=== PATIENT | male | born 2000 | race Caucasian/White ===

== ENCOUNTER 2024-08-14 14:35 | Emergency (ER) | payer MEDICAID, SELFPAY ==
[2024-08-14 14:52] VITALS: BP 156/96; PULSE 103; RESP 16; TEMP 37.8; O2SAT 97; BMI 21.9
--- NOTE | 2024-08-14 15:37 | ED_ITS ---
HPI - Neck Pain/Injury 2 General: Chief Complaint: Neck Pain/Injury Stated Complaint: headache, neck stiffness, fever Time Seen by Provider: 08/14/24 15:35 History of Present Illness: 22-year-old male presents clinic complai mark of headache stiff neck and fever he is concerned that he has meningitis. No rash. His girlfriend is also had upper respiratory illness and headache. No rash. Low-grade fever at home. Has had a bit of a headache. Slight sore throat as well. Related Data Allergies Allergy/AdvReac Type Severity Reaction Status Date / Time No Known Allergies Allergy Verified 08/14/24 14:55 Review of Systems 2 Const: Reports: fever(s) and body aches; Denies: chills ENMT: Reports: throat pain Card: Denies: chest pain Resp: Denies: dyspnea GI: Denies: abdominal pain : Denies: dysuria, urinary frequency or urinary urgency Musc: Reports: neck pain; Denies: back pain Skin/Breast: Denies: rash PFSH ED 2 PFSH: Medical History Psychiatric care Physical Exam 2 Const: COMMON NORMALS: no acute distress GENERAL APPEARANCE: cooperative and comfortable ORIENTATION/CONSCIOUSNESS: Yes awake, Yes oriented to person, Yes oriented to place and Yes oriented to time HENMT: COMMON NORMALS: normocephalic, atraumatic, hearing grossly normal bilaterally, external ears normal, EAC's normal and TM's normal bilaterally H EAD & SCALP: normocephalic and atraumatic EXTERNAL EAR: Yes external ears normal EXTERNAL AUDITORY CANAL: EAC's normal TYMPANIC MEMBRANE: TM's normal bilaterally Eye: COMMON NORMALS: Equal, round and reactive pupils present, EOMs intact bilaterally, conjunctivae normal and no scleral icterus CONJUNCTIVA: Yes conjunctivae normal PUPIL: Yes Equal, round and reactive pupils present Neck/C-Spine: COMMON NORMALS: full ROM, no lymphadenopathy and supple O THER: Pain with flexion of the neck but does not appear to be true meningeal signs patient is able to flex and extend and move head without significant hesitation no nuchal rigidity. Lymph: LYMPHATIC: no lymphadenopathy noted Resp: COMMON NORMALS: normal respiratory effort, No retractions, No use of accessory muscles and clear to auscultation bilaterally AUSCULTATION: clear to auscultation bilaterally Cardio: COMMON NORMALS: regular rate, regular rhythm and No murmurs present (Cardio) RATE: regular rate RHYTHM: regular rhythm GI: COMMON NORMALS: Soft to palpation and No hepatosplenomegaly present A USCULTATION: Yes normoactive bowel sounds PALPATION: Yes Soft to palpation, No Tenderness to palpation present (GI), No Guarding due to palpation present (GI) and Yes No hepatosplenomegaly present Extremity: COMMON NORMALS: normal to inspection, capillary refill normal, no clubbing, cyanosis or edema, no calf tenderness and no pedal edema Neuro: SENSORIUM/ORIENTATION: Yes oriented to person, Yes oriented to place and Yes oriented to time Skin: COMMON NORMALS: no rashes or lesions noted GENERAL SKIN EXAM: no rashes or lesions noted Course 2 Vital Signs: Vital signs: Vital Signs Temperature 100.1 F H 08/14/24 14:52 Pulse Rate 101 H 08/14/24 18:30 Respiratory Rate 16 08/14/24 18:30 Blood Pressure 136/79 08/14/24 18:30 Pulse Oximetry 99 08/14/24 18:30 Oxygen Delivery Me thod Room Air 08/14/24 16:44 MDM - Neck Pain/Injury Medical Decision Making Repeat exam patient does not have any meningeal signs. Suspect is a viral pressure infection. He has no leukocytosis and minimally elevation of his CRP. Patient is concerned about possibility of meningitis. He does have some neck pain but does not really have nuchal rigidity or meningeal signs. Suspect this is part of a viral syndrome. Did offer lumbar puncture patient declines at this time. Is worsening or change symptoms can return. Medical Records I reviewed the patient's medical records. Lab Data I reviewed the patient's lab results. 08/14/24 15:50 08/14/24 15:50 Laboratory Results WBC 8.39 10^3/uL (3.29-11.43) 08/14/24 15:50 RBC 4.67 10^6/uL (3.85-5.65) 08/14/24 15:50 Hgb 14.90 g/dL (11.27-16.99) 08/14/24 15:50 Hct 43.1 % (37-53) 08/14/24 15:50 MCV 92.3 fl (82-101) 08/14/24 15:50 MCH 31.9 pg (27-33) 08/14/24 15:50 MCHC 34.6 g/dL (30-55) 08/14/24 15:50 RDW 12.0 % (12.1-15.1) L 08/14/24 15:50 Plt Count 187 10^3/cmm (157-399) 08/14/24 15:50 MPV 10.3 fL (7.4-10.4) 08/14/24 15:50 Neut % (Auto) 81.4 % 08/14/24 15:50 Lymph % (Auto) 8.2 % 08/14/24 15:50 Butts % (Auto) 9.8 % 08/14/24 15:50 Eos % (Auto) 0.2 % 08/14/24 15:50 Baso % (Auto) 0.2 % 08/14/24 15:50 Neut # (Auto) 6.82 10^3/uL (1.8-7.7) 08/14/24 15:50 Lymph # (Auto) 0.7 10^3/uL (0.8-4.8) L 08/14/24 15:50 Butts # (Auto) 0.8 10^3/uL (0.2-0.9) 08/14/24 15:50 Eos # (Auto) 0.0 10^3/uL (0.0-0.8) 08/14/24 15:50 Baso # (Auto) 0.0 10^3/uL (0.0-0.1) 08/14/24 15:50 Nucleated RBC % (auto) 0 % 08/14/24 15:50 Nucleated RBCs # 0.0 /100WBC 08/14/24 15:50 ESR 5 mm/hr (0-10) 08/14/24 15:50 Sodium 135 mmol/L (136-145) L 08/14/24 15:50 Potassium 4.3 mmol/L (3.5-5.1) 08/14/24 15:50 Chloride 99 mmol/L (98-107) 08/14/24 15:50 Carbon Dioxide 25 mmol/L (22-29) 08/14/24 15:50 Anion Gap 15.3 (5-19) 08/14/24 15:50 BUN 11 mg/dL (6-20) 08/14/24 15:50 Creatinine 0.9 mg/dL (0.7-1.2) 08/14/24 15:50 GFR Calculation 105.5 mL/min (90-130) 08/14/24 15:50 Glucose 97 mg/dL (65-115) 08/14/24 15:50 Calculated Osmolality 279 mOsm/kg (285-295) L 08/14/24 15:50 Calcium 8.9 mg/dL (8.5-10.5) 08/14/24 15:50 Total Bilirubin 0.8 mg/dL (0.15-1.2) 08/14/24 15:50 AST 15 U/L (0-40) 08/14/24 15:50 ALT 9 U/L (0-41) 08/14/24 15:50 Alkaline Phosphatase 44 U/L (40-130) 08/14/24 15:50 C-Reactive Protein 25.3 mg/L (0.0-4.9) H 08/14/24 15:50 Total Protein 7.3 g/dL (6.6-8.7) 08/14/24 15:50 Albumin 4.2 g/dL (3.5-5.2) 08/14/24 15:50 Globulin 3.1 g/dL (1.3-4.6) 08/14/24 15:50 Coronavirus (PCR) Negative (Negative) 08/14/24 16:32 Monoscreen Negative (Negative) 08/14/24 15:50 Influenza A (PCR) Negative (Negative) 08/14/24 16:32 Influenza Type B (PCR) Negative (Negative) 08/14/24 16:32 RSV (PCR) Negative (Negative) 08/14/24 16:32 Group A Strep Rapid Negative (Negative) 08/14/24 16:32 No radiology studies performed this visit Discharge Plan Discharge Patient Disposition: Home Clinical Impression: Viral URI Condition: Stable Discharge Orders: Discharge ED (Routine); Ordered 08/14/24 Ordered By: Luis Ya Discharge Diet: Usual diet Discharge Activity: Increase activity as tolerated Patient Instructions: Opioid Safety, Pain Management Activity Restrictions/Additional Instructions: Thank you for choosing [facility] for your healthcare needs today. It is very important that you follow up as instructed or that you return to the Emergency Department should you have concerns or if your condition changes or worsens in any way. You were seen in the emergency room with complaint of neck pain and headache. Your neck discomfort is not typical of what we described as meningeal symptoms. Your white count was normal. The sed rate was also normal and your CRP was slightly elevated. These are markers of inflammation associated with infection. Your temperature was mildly elevated. Swabs for mono flu COVID and RSV and strep were all negative. We did discuss and I had offered you a lumbar tap which you declined. If you have worsening or changing symptoms return to the emergency room. Coding Level of Care Code ED [employer]
[2024-08-14 15:55] LABS: Basophils % 0.2 %; Eosinophils % 0.2 %; Hematocrit 43.1 % (37-53); Lymphocytes # 0.7 10^3/uL (0.8-4.8); Lymphocytes % 8.2 %; Mean Corpuscular HGB Conc 34.6 g/dL (30-55); Mean Corpuscular Hemoglobin 31.9 pg (27-33); Mean Corpuscular Volume 92.3 fl (82-101); Mean Platelet Volume 10.3 fL (7.4-10.4); Monocytes # 0.8 10^3/uL (0.2-0.9); Monocytes % 9.8 %; Neutrophils # 6.82 10^3/uL (1.8-7.7); Neutrophils % 81.4 %; Nucleated Red Blood Cells % 0 %; Platelet Count 187 10^3/cmm (157-399); Red Blood Count 4.67 10^6/uL (3.85-5.65); White Blood Count 8.39 10^3/uL (3.29-11.43)
[2024-08-14 15:58] LABS: Erythrocyte Sedimentation Rate 5 mm/hr (0-10)
[2024-08-14 16:15] LABS: Alanine Aminotransferase 9 U/L (0-41); Albumin Level 4.2 g/dL (3.5-5.2); Alkaline Phosphatase 44 U/L (40-130); Anion Gap 15.3 (5-19); Aspartate Amino Transferase 15 U/L (0-40); Blood Urea Nitrogen 11 mg/dL (6-20); C Reactive Protein 25.3 mg/L (0.0-4.9); Calcium 8.9 mg/dL (8.5-10.5); Carbon Dioxide 25 mmol/L (22-29); Chloride 99 mmol/L (98-107); Creatinine Clr Calc Pharmacy 122.3099; Globulin 3.1 g/dL (1.3-4.6); Glomerular Filtration Rate 105.5 mL/min (90-130); Glucose 97 mg/dL (65-115); Osmolality Calculated 279 mOsm/kg (285-295); Potassium 4.3 mmol/L (3.5-5.1); Sodium 135 mmol/L (136-145); Total Bilirubin 0.8 mg/dL (0.15-1.2); Total Protein 7.3 g/dL (6.6-8.7)
[2024-08-14 16:25] LABS: Monoscreen Negative (Negative)
[2024-08-14] MEDS: sodium chloride 0.9% 1,000 ML 999 ML IV (16:42)
[2024-08-14 16:44] VITALS: BP 138/72; PULSE 92; RESP 16; O2SAT 99
[2024-08-14 16:44] LABS: Rapid Strep A Test Negative (Negative)
[2024-08-14 17:18] LABS: Covid PCR NEGATIVE (Negative); Influenza A NEGATIVE (Negative); Influenza B NEGATIVE (Negative); Respiratory Syncytial Virus Ce NEGATIVE (Negative)
[2024-08-14 18:30] VITALS: BP 136/79; PULSE 101; RESP 16; O2SAT 99
== END 2024-08-14 18:35 | disposition home or self-care (01) ==
PROVIDERS: Emergency Medicine; Emergency Provider Family Medicine
DX: J06.9 Acute upper respiratory infection, unspecified (principal)
CPT/HCPCS: 0241U; 36415; 80053; 85025; 85651; 86140; 86308; 87081; 87880; 99284; J7030